=== PATIENT | female | born 1980 | race Caucasian/White ===

== ENCOUNTER 2017-02-24 14:51 | Emergency (ER) | payer OTHER ==
[~2017-02-24] VITALS: Ht 167.6 cm; Wt 99.4 kg
[2017-02-24 16:51] VITALS: BP 134/96
== END 2017-02-24 16:52 | disposition home or self-care (01) ==
LOC: EME 14:51
DX: S61.412A Laceration without foreign body of left hand, initial encounter (principal); W27.0XXA Contact with workbench tool, initial encounter
CPT/HCPCS: 99281; 99284

== ENCOUNTER 2017-07-12 17:48 | Emergency (ER) | payer OTHER ==
[~2017-07-12] VITALS: Ht 167.6 cm; Wt 97.6 kg
[2017-07-12] MEDS ORDERED: AMOXICILLIN875 MG PO (18:28)
[2017-07-12] MEDS ORDERED: TRAMADOL HCL50 MG PO (18:28)
[2017-07-12] MEDS ORDERED: MOTRIN800 MG PO (18:28)
[2017-07-12 18:38] VITALS: BP 177/116
== END 2017-07-12 18:39 | disposition home or self-care (01) ==
LOC: EME 17:48
DX: K08.89 Other specified disorders of teeth and supporting structures (principal); F17.200 Nicotine dependence, unspecified, uncomplicated; F32.9 Major depressive disorder, single episode, unspecified
CPT/HCPCS: 99281; 99283